=== PATIENT | male | born 1950 | race Caucasian/White ===

== ENCOUNTER 2016-10-11 20:05 | Emergency (ER) | payer OTHER ==
[~2016-10-11] VITALS: Ht 167.6 cm; Wt 61.4 kg
[~2016-10-11 20:05] MED LIST: CIPR500S3 PO; EPIN0.3P2 IJ; LOV40 SUBQ; OXYC5TAB72 PO
[2016-10-11 20:14] VITALS: BP 149/76; PULSE 88; RESP 18; O2SAT 98
[2016-10-11] MEDS ORDERED: Dexamethasone 10 mg/mL Inj IVPUSH ONE (21:10)
--- NOTE | 2016-10-11 21:27 | ED.REPORT ---
HPI-Allergic Reaction Date of Service Oct 11, 2016 ED Provider: Nicholas Velarde DO 66-year-old typically healthy active male with past medical history of anaphylaxis with bee sting since the emergency department after wasp sting. He states that shortly after the sting he used his EpiPen which in 2006. He states that after this he was still feeling systemic symptoms which she describes as a pulsating numbness, including numbness in the face. EMS was called and he received Benadryl IV in route. Here in the emergency department he is not complaining of any symptoms related to this bee sting. He is not short of breath and is not having trouble breathing. Patient was stung on the right second digit of the hand. He does have a residual rash on the right hand which extends just proximally to the wrist but does not extend up to the elbow. Denies nausea/vomiting, fever, chills, chest pain, abdominal pain, headache. Last time this occurred was 15 years prior. Nursing Notes Stated Complaint: ALLERGIC REACTION Chief Complaint: Allergic Reaction Nursing Notes Reviewed: Yes Allergies: Uncoded Allergies: BEE (WASP) STINGS (Allergy, Unknown, 10/11/16) Scheduled Ciprofloxacin (Ciprofloxacin) 500 Mg/5 Ml Taylor.mc.rec 500 MG PO BID Enoxaparin (Lovenox) 40 Mg/0.4 Ml Syringe 40 MG SUBQ BID Scheduled PRN Epinephrine (Epipen 2-Andi) 0.3 Mg/0.3 Ml Auto.injct 0.3 MG IJ PRN PRN PRN For Anaphyllaxis oxyCODONE (oxyCODONE) 5 Mg Tablet 5 MG PO Q4H PRN PRN For Pain General Time Seen by MD: 20:26 Chief Complaint Allergic reaction Hx Obtained From: Patient, Spouse Arrived By: Ambulance Onset Occurred: Just prior to arrival Symptom Duration: Since onset Progression Since Onset: Rapidly improving Location: : Arm right Quality: Itching Severity: Current: No pain currently Severity: Maximum: No pain Recent Healthcare: No recent doctor visit Past Medical History Past Medical History Prostate cancer Smoking History Current Every Day Smoker Review of Systems Constitutional: Denies: Chills, Fever Eyes: Denies: Diplopia Respiratory: Denies: Dyspnea on exertion, Non-productive cough, Pleuritic pain , Shortness of breath, Wheezing GI: Denies: Abdominal pain, Constipation, Diarrhea Neurologic: Denies: Abnormal movement, Change LOC, Dizziness, Focal weakness, Headache, Lightheaded Complete sys rev & neg: except as marked. Physical Exam Physical Exam Notes: Minor swelling of the right hand Erythema extending from the hand and extending proximally ending midway between the elbow and the wrist. Initial Vital Signs Vital Signs (First) Date Time Temp Pulse Resp B/P Pulse Ox O2 Delivery O2 Flow Rate FiO2 10/11/16 20:14 36.7 88 18 149/76 98 Room Air Initial VS: Reviewed, Vital signs normal Head / Eyes: Atraumatic, Normocephalic, PERRL ENT: Mucous membranes moist, Conjunctiva normal, No scleral icterus Neck: Supple, Non-tender, Full range of motion Abdomen / GI: Soft, Non-tender, No guarding, No rebound, No distention Extremities: Vascular intact, Neuro intact, No swelling, No tenderness Neurologic: Alert, Oriented, Nonfocal Psychiatric: Mood/affect normal, Behavior normal, Normal thought content Respiratory / Chest: Atraumatic, Breath sounds NL, Breath sounds = bilat, No rales, No rhonchi, No wheezing Cardiovascular: Heart rate NL, Regular rhythm, Heart sounds NL, No murmurs, No rubs Interpretation & Diagnostics Lab Results Interpretation Test 10/11/16 20:15 Hold Purple Top Tube Received (Received) Hold Blue Top Tube Received (Received) Hold [place] Top Tube Received (Received) Re-Eval/Medical Decision Med Decision/Clinical Course Patient symptoms are abated here in the emergency department. He was given 20 mg dexamethasone to cover for residual anaphylactoid reaction. I expect that his symptoms will continue resolve over the next 24-48 hours. He will be sent home with a prescription for a new EpiPen. Counseled Regarding: Diagnosis, Lab results, Need for follow-up, When/why to return to ED Discharge & Departure Primary Impression: Anaphylactic reaction Encounter type: initial encounter Qualified Code: T78.2XXA - Anaphylactic shock, unspecified, initial encounter Disposition: Home Discharge Condition All VS Reviewed: Yes Condition: Stable Patient Instructions: Anaphylaxis (ED) Additional Instructions: You were brought to the emergency department today by EMS with concern for anaphylaxis. In route to the hospital you were given Benadryl IV, and here in the hospital today as you are given dexamethasone IV to cover for anaphylactic reaction over the next 4 days. Due to your current symptoms here in the hospital there is no concern for progression of anaphylactic reaction at this time. We will refill your EpiPen medication, to have on hand in case of exposure. Please call your primary care doctor and scheduled follow-up appointment as soon as possible. Referrals: Bismark Mina MD (PCP) Attending Statement I will personally performed a history and physical examination. I concur with the assessment and plan. copies to: Bismark Mina MD, Adam J DO Oct 11, 2016 21:06 Nicholas Velarde DO Oct 11, 2016 23:39
[2016-10-11 22:32] VITALS: BP 114/71; PULSE 77; RESP 18; O2SAT 95
== END 2016-10-11 22:38 | disposition home or self-care (01) ==
LOC: SED 20:05
DX: R20.0 Anesthesia of skin (principal); R21 Rash and other nonspecific skin eruption; T63.461A Toxic effect of venom of wasps, accidental (unintentional), initial encounter; Y92.89 Other specified places as the place of occurrence of the external cause; Y93.9 Activity, unspecified; Y99.8 Other external cause status; F17.200 Nicotine dependence, unspecified, uncomplicated; Z91.038 Other insect allergy status
CPT/HCPCS: 96374; 99284; J1100